=== PATIENT | male | born 1970 | race Caucasian/White ===

== ENCOUNTER 2020-03-08 06:52 | Day surgery (SDC) | payer OTHER ==
[~2020-03-08] VITALS: Ht 180.3 cm; Wt 99.8 kg
[~2020-03-08 06:52] MED LIST: IMURAN50 MG PO; INDOCIN25 MG PO; KLONOPIN1 MG PO; LISINOPRIL-HCT1 EAC8 PO; vitamin d PO
[2020-03-08 08:24] LABS: HEMATOCRIT 41.3 % (42.0-54.0); HEMOGLOBIN 13.7 g/dL (13.5-17.5); MCH 30.1 pg (26.0-34.0); MCHC 33.2 g/dL (31.0-37.0); MCV 90.8 fL (80.0-100.0); MEAN PLATELET VOLUME 10.2 fL (7.4-10.4); RBC 4.55 10x6/uL (4.20-6.10); RDW 12.6 % (11.5-14.5); WBC 7.7 10x3/uL (4.8-10.8)
[2020-03-08 09:05] VITALS: BP 129/75; Ht 180.3 cm; Wt 99.8 kg
== END 2020-03-08 12:08 | disposition home or self-care (01) ==
LOC: EDBD 06:52 → D.OPS 06:52 → EDBD 08:45 → D.OPS 08:45
PROVIDERS: Anesthesiology; ATTEND Orthopaedic Surgery
DX: M25.562 Pain in left knee (principal); M25.552 Pain in left hip; M23.92 Unspecified internal derangement of left knee; M25.852 Other specified joint disorders, left hip; Z53.29 Procedure and treatment not carried out because of patient's decision for other reasons